=== PATIENT | male | born 1945 | race Caucasian/White ===

== ENCOUNTER → 2019-09-02 | Outpatient (CLI) | payer MEDICARE ==
[~2019-09-02] MED LIST: AVODART0.5 MG; LOSARTAN-HCTZ1 EACH; METOPROLOL SUCC50 MG; NORVASC5 MG PO; TAMSULOSIN HCL0.4 MG
--- NOTE | 2019-09-02 11:47 | Diagnostic Imaging Report ---
EXAM: CT Abdomen and Pelvis WITHOUT intravenous contrast INDICATION: Inguinal hernia COMPARISON: CT abdomen and pelvis of 10/03/2013 TECHNIQUE: Abdomen and pelvis were scanned utilizing a multidetector helical scanner from the lung base to the pubic symphysis without administration of IV contrast. Coronal and sagittal reformations were obtained. IV CONTRAST: None ORAL CONTRAST: None COMPLICATIONS: None RADIATION DOSE: Total DLP: 698.9 mGy*cm Dose modulation, iterative reconstruction, and/or weight based adjustment of the mA/kV was utilized to reduce the radiation dose to as low as reasonably achievable. FINDINGS: LOWER THORAX: No focal consolidation. Coronary artery atherosclerotic calcifications. HEPATOBILIARY: No focal liver lesion. Unremarkable appearing gallbladder. SPLEEN: No splenomegaly. PANCREAS: No focal masses or ductal dilatation. ADRENALS: No adrenal nodules. KIDNEYS/URETERS: Severe bilateral hydroureteronephrosis with extensive bilateral renal cortical thinning, increased compared to the prior CT of 10/03/2013. No renal calculi. Innumerable left greater than right exophytic renal cysts. PELVIC ORGANS/BLADDER: Mild diffuse bladder wall thickening. Prostatomegaly to 5.4 cm. PERITONEUM / RETROPERITONEUM: No free air or fluid. LYMPH NODES: No lymphadenopathy. VESSELS: Heavy diffuse atherosclerotic calcifications of the nonaneurysmal abdominal aorta and major branches. GI TRACT: No abnormal bowel wall thickening. No bowel obstruction. Normal appendix. BONES AND SOFT TISSUES: Large right inguinal hernia contains mesenteric fat and multiple loops of small bowel. No wall thickening, free fluid, free air, or pneumatosis. No acute osseous injury. Degenerative changes of the visualized spine. No suspicious lytic or blastic lesions. IMPRESSION: Larger in angle hernia contains multiple loops of small bowel and mesenteric fat. No definite evidence of strangulation or incarceration. Severe bilateral hydroureteronephrosis and extensive bilateral renal cortical thinning, increased from 10/03/2013. Heavy diffuse atherosclerotic calcifications, including of the coronary arteries. Signed by: Sanchez Nicole MD on 09/02/2019 11:44 AM
== END ==
LOC: CT 10:48
PROVIDERS: ATTEND Urology
DX: K40.90 Unilateral inguinal hernia, without obstruction or gangrene, not specified as recurrent (principal)
CPT/HCPCS: 74176

== ENCOUNTER → 2021-07-09 | Outpatient (CLI) | payer MEDICARE ==
[~2021-07-09] MED LIST changes: +DIATRIZOATE MEGL/DIATRIZOA SOD 30 ML BTL PO ONE; +IOPAMIDOL 370 MG/ML 200 ML INFUS..BTL INJ ONE; +SODIUM CHLORIDE 0.9% 50ML 50 ML ONE
== END ==
LOC: CT 12:06
PROVIDERS: ATTEND Surgery
DX: K40.30 Unilateral inguinal hernia, with obstruction, without gangrene, not specified as recurrent (principal)
CPT/HCPCS: 74177; Q9967

== ENCOUNTER 2021-09-18 11:50 | Inpatient (IN) | payer MEDICARE ==
[~2021-09-18] VITALS: Ht 180.3 cm; Wt 82.3 kg
[2021-09-18] VITALS (7 sets, daily range): BP systolic 81–138; BP diastolic 51–73
[~2021-09-18 11:50] MED LIST changes: -DIATRIZOATE MEGL/DIATRIZOA SOD 30 ML BTL PO ONE; -IOPAMIDOL 370 MG/ML 200 ML INFUS..BTL INJ ONE; -SODIUM CHLORIDE 0.9% 50ML 50 ML ONE
[2021-09-18] MEDS ORDERED: SODIUM CHLORIDE 0.9% 1000ML 1,000 ML IV SCH (12:30)
[2021-09-18 12:33] LABS: BASOPHILS % 0.5 % (0.0-1.0); EOSINOPHILS % 0.1 % (0.0-6.0); HEMATOCRIT 35.4 % (38.2-49.6); HEMOGLOBIN 10.5 g/dL (14.0-18.0); LYMPHOCYTES # (AUTO) 0.5 (1.0-3.2); LYMPHOCYTES % 6.3 % (18.0-39.1); MEAN CORPUSCULAR HEMOGLOBIN 29.3 pg (28-32); MEAN CORPUSCULAR HGB CONC 29.7 g/dL (31-35); MEAN CORPUSCULAR VOLUME 98.9 fL (81-99); MONOCYTES # (AUTO) 0.3 (0.2-0.8); MONOCYTES % 3.5 % (4.4-11.3); NEUTROPHILS # (AUTO) 6.8 (2.1-6.9); NEUTROPHILS % 88.8 % (38.7-80.0); PLATELET COUNT 157 x10e3/uL (140-360); RED BLOOD COUNT 3.58 x10e6/uL (4.3-5.7); RED CELL DISTRIBUTION WIDTH 15.8 % (11.7-14.4)
[2021-09-18] MEDS ORDERED: DEXTROSE 50% SYRINGE 50 ML IV ONE ×3 (12:45→20:43)
[2021-09-18] MEDS: DEXTROSE 5%/0.45% SOD CHL 1,000 ML IV ONE ×2 (12:49→13:52)
[2021-09-18 12:52] LABS: ALBUMIN 1.1 g/dL (3.5-5.0); ALBUMIN/GLOBULIN RATIO 0.3 (0.8-2.0); ANION GAP 20.1 mmol/L (8-16); CALCIUM 8.3 mg/dL (8.4-10.2); CREATININE, SERUM 7.18 mg/dL (0.72-1.25); POTASSIUM 5.1 mmol/L (3.5-5.1)
[2021-09-18] MEDS ORDERED: SODIUM CHLORIDE 0.9% 50ML 50 ML ONE (13:08)
[2021-09-18] MEDS ORDERED: IOPAMIDOL 370 MG/ML 200 ML INFUS..BTL INJ ONE (13:08)
[2021-09-18] MEDS ORDERED: DEXTROSE 10% 1,000 ML IV ONE (13:55)
[2021-09-18] MEDS ORDERED: SODIUM CHLORIDE 0.9% 1000ML 1,000 ML ONE ×2 (13:55→18:56)
[2021-09-18] MEDS: DEXTROSE 10% 1,000 ML IV SCH (14:00)
[2021-09-18] MEDS ORDERED: DEXTROSE 50% SYRINGE 50 ML IV STA (14:44)
[2021-09-18 14:45] LABS: POLYCHROMASIA FEW
[2021-09-18 14:46] LABS: HYPOCHROMASIA MODE
[2021-09-18] MEDS ORDERED: PIPERACILLIN/TAZO 4.5 GM 100 ML IV SCH (15:00)
[2021-09-18] MEDS ORDERED: HYDROCODONE/APAP 5MG-325MG TAB PO ONE (15:45)
[2021-09-18] MEDS ORDERED: PIPERACILLIN/TAZOBACTAM 2.25 GM in SODIUM CHLORIDE 0.9% 50ML 50 ML IV SCH (16:00)
[2021-09-18] MEDS ORDERED: GENTAMICIN 120MG/NS 100ML 100 ML IV ONE (17:30)
[2021-09-18] MEDS ORDERED: VASOPRESSIN 60 UNIT in DEXTROSE 5% 50ML 57 ML IV PRN (18:00)
[2021-09-18] MEDS ORDERED: ALBUMIN 25% 25GM 100ML 0.25 GM/ML BTL IV ONE (18:00)
[2021-09-18] MEDS ORDERED: ALBUMIN 25% 25GM 100ML 200 ML ONE (18:18)
[2021-09-18] MEDS ORDERED: ALBUMIN 25% 25GM 100ML 200 ML IV ONE (18:30)
[2021-09-18] MEDS: DEXTROSE 50% SYRINGE 50 ML IV PRN ×2 (20:38→22:27)
[2021-09-18] MEDS ORDERED: ACETAMINOPHEN/CODEINE 300MG - 30MG TAB PO PRN (21:00)
[2021-09-18] MEDS ORDERED: PIPERACILLIN/TAZOBACTAM 4.5 GM in SODIUM CHLORIDE 0.9% 100 ML IV SCH (22:00)
[2021-09-18] MEDS: PIPERACILLIN/TAZOBACTAM 3.375 GM in SODIUM CHLORIDE 0.9% 50ML 50 ML IV SCH (22:26)
[2021-09-19] VITALS (26 sets, daily range): BP systolic 77–135; BP diastolic 48–83
[2021-09-19] MEDS: Morphine 2mg Syringe 2 MG/ML SYR IV PRN (00:33)
[2021-09-19] MEDS: DEXTROSE 50% SYRINGE 50 ML IV PRN ×5 (01:06→16:53)
[2021-09-19 06:29] LABS: BASOPHILS # (AUTO) 0.1 (0.0-0.1); BASOPHILS % 0.7 % (0.0-1.0); EOSINOPHILS % 0.3 % (0.0-6.0); HEMATOCRIT 29.6 % (38.2-49.6); HEMOGLOBIN 8.9 g/dL (14.0-18.0); LYMPHOCYTES # (AUTO) 0.7 (1.0-3.2); LYMPHOCYTES % 5.6 % (18.0-39.1); MEAN CORPUSCULAR HEMOGLOBIN 28.7 pg (28-32); MEAN CORPUSCULAR HGB CONC 30.1 g/dL (31-35); MEAN CORPUSCULAR VOLUME 95.5 fL (81-99); MONOCYTES # (AUTO) 0.5 (0.2-0.8); NEUTROPHILS # (AUTO) 10.6 (2.1-6.9); NEUTROPHILS % 88.4 % (38.7-80.0); PLATELET COUNT 105 x10e3/uL (140-360); RED CELL DISTRIBUTION WIDTH 15.9 % (11.7-14.4)
[2021-09-19 06:40] LABS: INR 1.38; PROTHROMBIN TIME 18.1 seconds (11.9-14.5)
[2021-09-19 06:41] LABS: PARTIAL THROMBOPLASTIN TIME 49.1 seconds (23.8-35.5)
[2021-09-19 06:46] LABS: IRON 17 ug/dL (65-175)
[2021-09-19 06:48] LABS: ALBUMIN 1.6 g/dL (3.5-5.0); ALBUMIN/GLOBULIN RATIO 0.5 (0.8-2.0); ANION GAP 15.2 mmol/L (8-16); CALCIUM 8.1 mg/dL (8.4-10.2); CREATININE, SERUM 5.57 mg/dL (0.72-1.25); POTASSIUM 4.2 mmol/L (3.5-5.1)
[2021-09-19 06:57] LABS: TRANSFERRIN < 19 mg/dL (174-364)
[2021-09-19] MEDS: DEXTROSE 10% 1,000 ML IV SCH ×2 (07:13→23:12)
[2021-09-19 08:01] LABS: BAND NEUTROPHILS % (MANUAL) 6 %; LYMPHOCYTES % (MANUAL) 11 % (19-48); METAMYELOCYTES % (MANUAL) 2 % (0-0); MONOCYTES % (MANUAL) 6 % (3.4-9.0); NEUTROPHILS % (MANUAL) 75 % (40-74); PLATELET ESTIMATE MODERATELY DECREASED; PLATELET MORPHOLOGY COMMENT NORMAL; RBC MORPHOLOGY COMMENT NORMAL
[2021-09-19] MEDS ORDERED: FAMOTIDINE 20 MG/2 ML VIAL IV SCH (09:00)
[2021-09-19] MEDS: NOREPINEPHRINE 8 MG/D5W 250 ML 250 ML IV PRN ×2 (09:44→21:01)
[2021-09-19] MEDS ORDERED: GENTAMICIN 120MG/NS 100ML 100 ML IV ONE (10:00)
[2021-09-19] MEDS ORDERED: SODIUM CHLORIDE 0.9% 1000ML 1,000 ML ONE (10:31)
[2021-09-19] MEDS ORDERED: NITROGLYCERIN0.4 MG SL (11:19)
[2021-09-19] MEDS ORDERED: CEFUROXIME250 MG PO (11:19)
[2021-09-19] MEDS ORDERED: CARVEDILOL12.5 MG PO (11:19)
[2021-09-19] MEDS ORDERED: CLOPIDOGREL75 MG PO (11:19)
[2021-09-19] MEDS ORDERED: LISINOPRIL10 MG PO (11:19)
[2021-09-19] MEDS ORDERED: SIMVASTATIN40 MG PO (11:19)
[2021-09-19] MEDS ORDERED: VITAMIN D250 MC1 PO (11:19)
[2021-09-19] MEDS ORDERED: FINASTERIDE5 MG PO (11:19)
[2021-09-19] MEDS ORDERED: RANEXA500 MG PO (11:19)
[2021-09-19] MEDS ORDERED: HYDRALAZINE HCL25 MG PO (11:19)
[2021-09-19] MEDS ORDERED: LASIX80 MG PO (11:19)
[2021-09-19] MEDS ORDERED: METOPROLOL SUCC50 MG PO (11:19)
[2021-09-19] MEDS ORDERED: METOPROLOL TAR100 MG PO (11:23)
[2021-09-19] MEDS: TAMSULOSIN HCL 0.4 MG CAP PO SCH (11:50)
[2021-09-19] MEDS: PIPERACILLIN/TAZOBACTAM 3.375 GM in SODIUM CHLORIDE 0.9% 50ML 50 ML IV SCH ×2 (11:50→22:28)
[2021-09-20] VITALS (19 sets, daily range): BP systolic 92–158; BP diastolic 55–88
[2021-09-20] MEDS: NOREPINEPHRINE 8 MG/D5W 250 ML 250 ML IV PRN ×2 (03:11→09:44)
[2021-09-20 06:09] LABS: HEMATOCRIT 28.7 % (38.2-49.6); HEMOGLOBIN 9.1 g/dL (14.0-18.0); LYMPHOCYTES # (AUTO) 0.9 (1.0-3.2); LYMPHOCYTES % 3.8 % (18.0-39.1); MEAN CORPUSCULAR HEMOGLOBIN 29.4 pg (28-32); MEAN CORPUSCULAR HGB CONC 31.7 g/dL (31-35); MEAN CORPUSCULAR VOLUME 92.9 fL (81-99); MONOCYTES # (AUTO) 0.9 (0.2-0.8); MONOCYTES % 3.8 % (4.4-11.3); NEUTROPHILS # (AUTO) 21.6 (2.1-6.9); NEUTROPHILS % 91.3 % (38.7-80.0); PLATELET COUNT 60 x10e3/uL (140-360); RED BLOOD COUNT 3.09 x10e6/uL (4.3-5.7); RED CELL DISTRIBUTION WIDTH 15.8 % (11.7-14.4)
[2021-09-20 06:25] LABS: ANION GAP 20.1 mmol/L (8-16); CALCIUM 8.5 mg/dL (8.4-10.2); CREATININE, SERUM 5.37 mg/dL (0.72-1.25); POTASSIUM 5.1 mmol/L (3.5-5.1)
[2021-09-20 08:14] LABS: BAND NEUTROPHILS % (MANUAL) 2 %; LYMPHOCYTES % (MANUAL) 4 % (19-48); MONOCYTES % (MANUAL) 2 % (3.4-9.0); NEUTROPHILS % (MANUAL) 92 % (40-74); PLATELET ESTIMATE MODERATELY DECREASED
[2021-09-20 08:15] LABS: PLATELET MORPHOLOGY COMMENT NORMAL; RBC MORPHOLOGY COMMENT NORMAL
[2021-09-20] MEDS ORDERED: GENTAMICIN 80MG/NS 100 ML 100 ML IV ONE (08:45)
[2021-09-20] MEDS: TAMSULOSIN HCL 0.4 MG CAP PO SCH (08:56)
[2021-09-20] MEDS: PIPERACILLIN/TAZOBACTAM 3.375 GM in SODIUM CHLORIDE 0.9% 50ML 50 ML IV SCH ×2 (09:58→22:41)
[2021-09-20] MEDS ORDERED: SODIUM CHLORIDE 0.9% 1000ML 1,000 ML ONE (12:26)
[2021-09-20] MEDS ORDERED: LORAZEPAM INJ 2 MG/ML VIAL IV ONE (12:30)
[2021-09-20] MEDS ORDERED: ALBUMIN 25% 12.5GM 0.25 GM/ML BTL IV PRN (12:45)
[2021-09-20] MEDS ORDERED: SODIUM CHLORIDE 0.9% 1000ML 2,000 ML IV PRN (12:45)
[2021-09-20] MEDS ORDERED: HEPARIN SOD (PORCINE) 1000 UNIT/ML SDV ONE (15:14)
[2021-09-20] MEDS ORDERED: LIDOCAINE HCL 1% LOCAL INJ 20 ML VIAL ONE (15:17)
[2021-09-20] MEDS ORDERED: PERIPHERAL TPN FORMULA 1 BAG IV SCH (20:00)
[2021-09-21] VITALS (21 sets, daily range): BP systolic 100–176; BP diastolic 42–81
[2021-09-21] MEDS: NOREPINEPHRINE 8 MG/D5W 250 ML 250 ML IV PRN (03:08)
[2021-09-21 05:51] LABS: BASOPHILS # (AUTO) 0.1 (0.0-0.1); BASOPHILS % 0.3 % (0.0-1.0); EOSINOPHILS # (AUTO) 0.1 (0.0-0.4); EOSINOPHILS % 0.3 % (0.0-6.0); LYMPHOCYTES % 6.1 % (18.0-39.1); MEAN CORPUSCULAR HEMOGLOBIN 29.4 pg (28-32); MEAN CORPUSCULAR HGB CONC 30.5 g/dL (31-35); MEAN CORPUSCULAR VOLUME 96.5 fL (81-99); MONOCYTES # (AUTO) 0.7 (0.2-0.8); MONOCYTES % 4.4 % (4.4-11.3); NEUTROPHILS # (AUTO) 14.1 (2.1-6.9); NEUTROPHILS % 87.9 % (38.7-80.0); RED BLOOD COUNT 2.28 x10e6/uL (4.3-5.7); RED CELL DISTRIBUTION WIDTH 15.7 % (11.7-14.4)
[2021-09-21 06:00] LABS: HEMOGLOBIN 6.7 g/dL (14.0-18.0); PLATELET COUNT 22 x10e3/uL (140-360)
[2021-09-21 06:15] LABS: ANION GAP 17.2 mmol/L (8-16); CALCIUM 8.3 mg/dL (8.4-10.2); CREATININE, SERUM 4.08 mg/dL (0.72-1.25); POTASSIUM 4.2 mmol/L (3.5-5.1)
[2021-09-21] MEDS ORDERED: SODIUM CHLORIDE 0.9% 250ML 250 ML IV ONE ×2 (06:45→15:00)
[2021-09-21] MEDS: TAMSULOSIN HCL 0.4 MG CAP PO SCH (07:59)
[2021-09-21 09:03] LABS: BAND NEUTROPHILS % (MANUAL) 1 %; LYMPHOCYTES % (MANUAL) 3 % (19-48); MONOCYTES % (MANUAL) 2 % (3.4-9.0); NEUTROPHILS % (MANUAL) 94 % (40-74)
[2021-09-21 09:04] LABS: PLATELET ESTIMATE MARKEDLY DECREASED; PLATELET MORPHOLOGY COMMENT NORMAL; RBC MORPHOLOGY COMMENT NORMAL
[2021-09-21] MEDS: PIPERACILLIN/TAZOBACTAM 3.375 GM in SODIUM CHLORIDE 0.9% 50ML 50 ML IV SCH (10:09)
[2021-09-21] MEDS ORDERED: HEPARIN SOD (PORCINE) 1000 UNIT/ML SDV IV PRN (11:15)
[2021-09-21] MEDS: Morphine 2mg Syringe 2 MG/ML SYR IV PRN ×2 (11:48→19:28)
[2021-09-21] MEDS ORDERED: HALOPERIDOL LACTATE 5 MG/ML VIAL IV PRN ×2 (12:45→17:00)
[2021-09-21] MEDS ORDERED: SODIUM CHLORIDE 0.9% 250ML 250 ML ONE (13:05)
[2021-09-21] MEDS ORDERED: METOPROLOL TARTRATE INJ 1 MG/ML VIAL IV PRN ×2 (15:00→15:45)
[2021-09-21] MEDS ORDERED: GENTAMICIN 120MG/NS 100ML 100 ML IV STA (15:19)
[2021-09-21] MEDS ORDERED: CEFEPIME 1 GM in SODIUM CHLORIDE 0.9% 50ML 50 ML IV SCH (15:30)
[2021-09-21] MEDS ORDERED: METOPROLOL TARTRATE INJ 1 MG/ML VIAL IV NR (15:44)
[2021-09-21] MEDS ORDERED: EYE LUBRICANT OPTH OINT 3.5GM TUBE OP SCH (17:00)
[2021-09-21] MEDS ORDERED: PERIPHERAL TPN FORMULA 1 BAG IV SCH (20:00)
== END 2021-09-21 23:37 | disposition expired | DRG 871 ==
LOC: ER 11:57 → ERHOLD 15:03 → ICU 17:47
PROVIDERS: ADMIT Internal Medicine; ATTEND Internal Medicine
PROC: 02HV33Z Insertion of Infusion Device into Superior Vena Cava, Percutaneous Approach (ICD-10-PCS; principal; 2021-09-18)
PROC: 5A1D70Z Performance of Urinary Filtration, Intermittent, Less than 6 Hours Per Day (ICD-10-PCS; 2021-09-18)
PROC: 02HV33Z Insertion of Infusion Device into Superior Vena Cava, Percutaneous Approach (ICD-10-PCS; 2021-09-20)
DX: A41.51 Sepsis due to Escherichia coli [E. coli] (principal); S37.061A Major laceration of right kidney, initial encounter; R65.21 Severe sepsis with septic shock; N18.6 End stage renal disease; G93.41 Metabolic encephalopathy; N10 Acute pyelonephritis; E44.0 Moderate protein-calorie malnutrition; N13.39 Other hydronephrosis; I12.0 Hypertensive chronic kidney disease with stage 5 chronic kidney disease or end stage renal disease; D68.9 Coagulation defect, unspecified; E11.649 Type 2 diabetes mellitus with hypoglycemia without coma; E11.22 Type 2 diabetes mellitus with diabetic chronic kidney disease; Z99.2 Dependence on renal dialysis; I25.10 Atherosclerotic heart disease of native coronary artery without angina pectoris; Z95.1 Presence of aortocoronary bypass graft; Z95.5 Presence of coronary angioplasty implant and graft; Z20.822 Contact with and (suspected) exposure to COVID-19
CPT/HCPCS: 36415; 36556; 71045; 74177; 74470; 76937; 77001; 80048; 80053; 82948; 83540; 83605; 83735; 84466; 85025; 85610; 85730; 86705; 86706; 86850; 86900; 86920; 87040; 87071; 87086; 87186; 87205; 87340; 90962; 93005; 99285; J0692; J1580; J1630; J1644; J2001; J2060; J2270; J2543; J7030; J7050; J7799; P9016; P9034; P9047; Q9967; U0002